=== PATIENT | female | born 1965 | race Caucasian/White ===

== ENCOUNTER → 2023-03-10 16:57 | Outpatient (REF) | payer OTHER, SELFPAY | LOC: WDC 16:57 | PROVIDERS: ATTENDING PHYSICIAN Obstetrics & Gynecology; FAMILY PHYSICIAN Obstetrics & Gynecology | DX: Z12.31 Encounter for screening mammogram for malignant neoplasm of breast (principal) | CPT/HCPCS: 77063; 77067 ==

== ENCOUNTER 2023-10-27 06:27 | Day surgery (SDC) | payer OTHER, SELFPAY ==
[2023-10-27] VITALS (8 sets, daily range): BP systolic 152–164; BP diastolic 83–95; BMI 25.4
[2023-10-27] MEDS: TYLENOL 1000 MG PO (12:08)
[2023-10-27] MEDS: CELEBREX 200 MG PO (12:08)
[2023-10-27] MEDS: NORMOSOL-R/PLASMALYTE-A 1000 IV (12:09)
[2023-10-27] MEDS: ROXICODONE 5 MG PO (14:56)
== END 2023-10-27 15:25 | disposition home or self-care (01) ==
LOC: SDS 06:27
PROVIDERS: ATTENDING PHYSICIAN Orthopaedic Surgery Hand Surgery; FAMILY PHYSICIAN Family Medicine
DX: S53.32XA Traumatic rupture of left ulnar collateral ligament, initial encounter (principal); X58.XXXA Exposure to other specified factors, initial encounter; S63.418A Traumatic rupture of collateral ligament of other finger at metacarpophalangeal and interphalangeal joint, initial encounter
CPT/HCPCS: 26540; 93005; C1713

== ENCOUNTER → 2024-03-02 07:44 | Outpatient (REF) | payer OTHER, SELFPAY | LOC: RAD 07:44 | PROVIDERS: ATTENDING PHYSICIAN Internal Medicine; FAMILY PHYSICIAN Family Medicine | DX: M81.0 Age-related osteoporosis without current pathological fracture (principal); Z13.820 Encounter for screening for osteoporosis | CPT/HCPCS: 77080 ==

== ENCOUNTER 2024-03-03 06:24 | Day surgery (SDC) | payer OTHER, SELFPAY | END 2024-03-03 10:41 | disposition home or self-care (01) | LOC: GI 06:24 | PROVIDERS: ATTENDING PHYSICIAN Internal Medicine Gastroenterology | DX: Z12.11 Encounter for screening for malignant neoplasm of colon (principal); K57.30 Diverticulosis of large intestine without perforation or abscess without bleeding; D12.3 Benign neoplasm of transverse colon; K62.1 Rectal polyp; K63.5 Polyp of colon | CPT/HCPCS: 45385; 45380; 88305 ==

== ENCOUNTER → 2024-03-13 17:05 | Outpatient (REF) | payer OTHER, SELFPAY | LOC: WDC 17:05 | PROVIDERS: ATTENDING PHYSICIAN Student in an Organized Health Care Education/Training Program | DX: Z12.31 Encounter for screening mammogram for malignant neoplasm of breast (principal) | CPT/HCPCS: 77063; 77067 ==

== ENCOUNTER 2024-12-03 19:54 | Emergency (ER) | payer OTHER, SELFPAY ==
[2024-12-03 19:55] VITALS: BP 204/114
[2024-12-03 20:16] VITALS: BP 167/95
[2024-12-03 21:00] VITALS: BP 154/85
[2024-12-03 21:03] LABS: Hematocrit 49.0 % (37.0-47.0); Hemoglobin 16.2 g/dL (12.0-16.0); Mean Corp Hgb Conc. 33.1 g/dL (33.0-37.0); Mean Corpuscular Volume 89.4 fL (81.0-99.0); Nucleated Red Blood Cells % 0 %; Platelet Count 504 10^3/uL (130-400); Red Cell Dist. Width 11.9 % (11.5-14.5); Urine Character Clear (Clear)
[2024-12-03] MEDS: DUONEB 3 ML INH ×2 (21:03→22:38)
[2024-12-03 21:09] LABS: Urine Red Blood Cell 0-2 /HPF (0-2); Urine Squamous Cell 0-2 /LPF (Few); Urine White Cell 0-2 /HPF (0-5)
--- NOTE | 2024-12-03 21:12 | ED.GENMED ---
History of Present Illness
General
Chief Complaint: Cold/Flu/URI Symptoms
Source: patient
Exam Limitations: none
Time Seen by Provider: 12/03/24 20:35
Nursing documentation reviewed up to this point in time: agreed with
History of Present Illness
History of Present Illness:
59-year-old female with no significant past medical history states she developed a cough 10 days ago and it is not improving.
Saw PCP 6 days ago was given a 5-day steroid taper with no improvement
Saw PCP again 2 days ago was put on a another prednisone taper starting at 40 mg a day x 3 days and tapering. Also given prescription for doxycycline and she has had a total of 5 doses. She was also given an albuterol inhaler which she has been
using. She also has been using her nebulizer that she has from when her son had asthma with albuterol nebulizations and her cough is not improving.
She denies fever or chills. Denies N/V. 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
Past History
Past History
ED Past Medical History: None
ED Past Surgical History: Cholecystectomy
Social History
Tobacco: Non-smoker
Alcohol: Occasional
Personal:
Living: with family
Employment: Employed
Review of Systems
Review of Systems
Allergies reviewed?: Yes
All Other Systems: ROS reviewed and negative except as documented in HPI and ROS
Phy Exam
Physical Exam
Physical Exam:
GENERAL: No acute distress. A&Ox3.
CONSTITUTIONAL: Afebrile.
EYES: clear, conjunctivae normal
ENMT: moist mucus membranes, Pharynx nl
RESPIRATORY: Regular respirations, nonlabored, lungs with rhonchorous breath sounds throughout worse in the right lung, coarse junky cough
CARDIOVASCULAR: Regular rate and rhythm, no murmurs, no rubs.
GI: Soft, nontender, normal BS
MUSCULOSKELETAL: Moves with ease. Well perfused.
SKIN: Warm, dry, pink
PSYCH: Normal mood and affect. Well kept, interactive and appropriate
NEUROLOGIC: Awake, alert and oriented. No focal neurological deficits
Sepsis
Sepsis Screening
Sepsis Assessment: Sepsis Ruled Out
Sepsis Screen
Sepsis Screen: Sepsis Ruled Out
Date: 12/03/24
Time: 23:17
Course
Orders/Labs/Results
Orders:
Orders
12/03/24 20:03
Electrocardiogram (*1) Urgent
Reason for Study: Shortness of Breath
EKG- Treatment ONCE
CR Chest - 2 Views Urgent
Comment:
Reason For Exam: shortness of breath, cough
12/03/24 20:52
Complete Blood Count/With Diff Urgent
Comprehensive Metabolic Panel Urgent
Urinalysis Reflex To Culture Urgent
Date Specimen was Collected: 12/03/24
Time Specimen was Collected: 20:51
Urine Microscopic Reflex Cult Urgent
Urine Culture Urgent
OC Source: U
Specimen Description:
Obtained by: Random
Date Specimen was Collected: 12/03/24
Time Specimen was Collected: 20:51
12/03/24 20:55
Ipratropium/Albuterol Sulfate [Duoneb] 3 ml .ROUTE .STK-MED ONE
12/03/24 20:56
Ipratropium/Albuterol Sulfate [Duoneb] 3 ml INH R NOW STA
12/03/24 22:31
Ipratropium/Albuterol Sulfate [Duoneb] 3 ml INH R NOW STA
12/03/24 22:47
Benzonatate [Tessalon Perles] 200 mg PO NOW STA
Abnormal Lab Results
12/03/24
20:52
RBC 5.48 H 10^6/uL
(4.20-5.40)
Hgb 16.2 H g/dL
(12.0-16.0)
Hct 49.0 H %
(37.0-47.0)
Plt Count 504 H 10^3/uL
(130-400)
MPV 10.6 H fL
(7.4-10.4)
Abs Immat Gran (auto) 0.1 H 10^3/uL
(0-0.05)
Absolute Neuts (auto) 8.6 H 10^3/uL
(1.4-6.5)
Absolute Lymphs (auto) 1.0 L 10^3/uL
(1.2-3.4)
Immature Gran % 1.3 H %
(0-0.5)
Neutrophils % 83.4 H %
(42.2-75.2)
Lymphocytes % 9.9 L %
(20.5-51.1)
Glucose 163 H mg/dl
(70-99)
Calcium 11.0 H mg/dl
(8.4-10.2)
ALT 39 H U/L
(0-35)
Total Protein 8.8 H g/dl
(6.3-8.2)
Albumin 5.2 H g/dl
(3.5-5.0)
Ur Occult Blood Reflex 1+ A
(Negative)
Leukocyte Esterase Rfl 1+ A
(Negative)
Urine Bacteria (Reflex) Few A
(Negative)
Urine Albumin (Reflex) 2+ A
(Neg - Trace)
12/03/24 20:52
12/03/24 20:52
Vital Signs
Initial and Last Documented VS:
Initial Vital Signs
Temp Pulse Resp BP Pulse Ox
98.6 F 125 22 204/114 98
12/03/24 19:55 12/03/24 19:55 12/03/24 19:55 12/03/24 19:55 12/03/24 19:55
Last Documented Vital Signs
Temp Pulse Resp BP Pulse Ox
98.6 F 99 18 142/76 96
12/03/24 19:55 12/03/24 22:15 12/03/24 21:15 12/03/24 22:00 12/03/24 23:00
MDM/Problems Addressed
MDM/Problems Addressed:
59-year-old female with no significant past medical history states she developed a cough 10 days ago and it is not improving.
Saw PCP 6 days ago was given a 5-day steroid taper with no improvement
Saw PCP again 2 days ago was put on a another prednisone taper starting at 40 mg a day x 3 days and tapering. Also given prescription for doxycycline and she has had a total of 5 doses. She was also given an albuterol inhaler which she has been
using. She also has been using her nebulizer that she has from when her son had asthma with albuterol nebulizations and her cough is not improving.
She does have Guaifenesin w codeine that does work and helps her sleep
She denies fever or chills. Denies N/V. 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
Afebrile, NAD, pulse ox 97% room air
EKG sinus tachycardia HR 113
CBC normal WBC, differential with elevation in inflammatory markers
CMP with no clinically significant abnormality
U/A neg (ordered from Triage)
10:25 PM:
Chest x-ray radiology report read: No acute cardiopulmonary process.
Patient feels somewhat better after DuoNeb, moving air much better on auscultation, scattered low pitched expiratory wheezes throughout and rhonchi right lung law improved but still present
Ambulated around hallway and maintained pulse ox of 98% RA
Feels much better after second DuoNeb and moving air better, less wheezing. She requests a prescription for the DuoNebs which is reasonable, prescription sent to her pharmacy.
Prescription also sent to her pharmacy for Elizabeth Diaz.
*Pulse Oximetry
SaO2: 97
Oxygen Mode of Delivery: Room air
Patient hypoxic: no
*EKG
EKG Intrepretation Date: 12/03/24
Interpretation: abnormal
Heart Rate: 119
Rate: tachycardiac
Rhythm: sinus
Butler: normal axis
Interval: normal interval
QRS Pattern: normal QRS
Ischemia: no ischemia
*Critical Care Note
Total Time (30-74mins, 75-104mins- exclusive of procedures): Not Applicable
ED Attending Note
-
Portions of this chart may have been created with voice recognition software.� Occasional wrong word or��sound alike� substitutions may have occurred due to the inherent limitations of voice recognition software.
Discharge Plan
Departure
Patient Disposition: Home (Routine Discharge)
Date of Disposition: 12/03/24
Time of Disposition: 22:52
Patient with high blood pressure during this ER visit?: No
Condition: Fair
Discharge Problem:
Acute bronchitis
Instructions: Acute Bronchitis, Adult (DC)
Prescriptions:
New
ipratropium-albuterol 0.5 mg-3 mg(2.5 mg base)/3 mL solution for nebulization
3 ml inhalation Q6H MDD wheezing/severe cough PRN (Reason: wheezing/severe cough) Qty: 90 0RF
benzonatate 100 mg capsule
100 mg PO BID PRN (Reason: Cough) Qty: 10 0RF
No Action
multivitamin Tablet
1 tab PO DAILY
Referrals:
Azael Nguyen CRNP [Specified Professional Personl, Internal Medicine] - As needed
UNKNOWN - PT DOES,NOT KNOW [Family Provider]
Stand Alone Forms: Return to Work
Activity Restrictions/Additional Instructions:
As we discussed, I sent a prescription to your pharmacy for the DuoNeb which is a mixture of albuterol and ipratropium and also for Tessalon Perles to take every 12 hours as needed for cough. You may continue your Guaifenesin with codeine as
directed.
Interventions
Interventions:
*Risk Screen - Suicide Last Done: 12/03/24 19:55
*General Assessment Last Done: 12/03/24 19:55
*Neglect/Abuse Screening Last Done: 12/03/24 19:55
*ED- Fall Risk Assessment Last Done: 12/03/24 20:51
*ED COVID-19 Vaccine History Last Done: 12/03/24 20:51
*ED Influenza Vaccine History Last Done: 12/03/24 20:51
ED- Pulmonary Assessment Last Done: 12/03/24 22:27
Discharge Date and Time
Print Language: WELSH
[2024-12-03 21:16] LABS: ALT (SGPT) 39 U/L (0-35); AST (SGOT) 32 U/L (14-36); Albumin 5.2 g/dl (3.5-5.0); Alkaline Phosphatase 91 U/L (38-126); Blood Urea Nitrogen 14 mg/dl (7-17); Calcium 11.0 mg/dl (8.4-10.2); Carbon Dioxide 26 mmol/L (22-30); Chloride 102 mmol/L (98-107); Glucose 163 mg/dl (70-99); Potassium 4.8 mmol/L (3.5-5.1); Sodium 137 mmol/L (135-145); Total Protein 8.8 g/dl (6.3-8.2); eGFR > 60.00
[2024-12-03 22:00] VITALS: BP 142/76
[2024-12-03] MEDS: TESSALON PERLES 200 MG PO (22:55)
== END 2024-12-03 23:19 | disposition home or self-care (01) ==
LOC: EMR 19:54
PROVIDERS: Registered Nurse; EMERGENCY PHYSICIAN Student in an Organized Health Care Education/Training Program
DX: J20.9 Acute bronchitis, unspecified (principal); R00.0 Tachycardia, unspecified
CPT/HCPCS: 99284; 94640; 71046; 80053; 81003; 81015; 85025; 87086; 93005